=== PATIENT | female | born 1985 | race Caucasian/White ===

== ENCOUNTER 2019-04-01 07:55 | Emergency (ER) | payer OTHER ==
[~2019-04-01] VITALS: Ht 149.9 cm; Wt 79.4 kg
--- NOTE | 2019-04-01 08:22 | NUR ---
Patient ambulated to bed 12 with family. RN evaluating patient at bedside.
[2019-04-01 08:28] VITALS: BP 131/100
--- NOTE | 2019-04-01 09:10 | NUR ---
C/O FEVER WITH COUGH X 2 DAYS. TOOK MOTRIN AND TYLENOL AT 0300. PATIENT STATES PAIN OF 0/10 AT THIS TIME; VSS; PATIENT POSITIONED FOR COMFORT; HOB ELEVATED; BEDRAILS UP X1; BED DOWN. ER MD MADE AWARE OF PT STATUS.
[2019-04-01 11:16] VITALS: BP 125/98
--- NOTE | 2019-04-01 11:16 | NUR ---
Patient discharged with v/s stable. Written and verbal after care instructions given and explained. Patient alert, oriented and verbalized understanding of instructions. Ambulatory with steady gait. All questions addressed prior to discharge. ID band removed. Patient advised to follow up with PMD. Rx of Allergy Loratadine and Tessalon Perles given. Patient educated on indication of medication including possible reaction and side effects. Opportunity to ask questions provided and answered.
== END 2019-04-01 11:16 | disposition home or self-care (01) ==
LOC: MED 07:55
DX: B34.9 Viral infection, unspecified (principal)
CPT/HCPCS: 99283

== ENCOUNTER 2020-02-18 07:12 | Emergency (ER) | payer OTHER ==
[~2020-02-18] VITALS: Ht 149.9 cm; Wt 80.7 kg
[2020-02-18 07:14] VITALS: BP 150/84
--- NOTE | 2020-02-18 07:20 | NUR ---
Pt taken to bed 12.
--- NOTE | 2020-02-18 07:21 | NUR ---
pt amb steady gait to restroom to provide urine sample
--- NOTE | 2020-02-18 07:31 | NUR ---
34/F c/o hematuria multiple times last night; pressure like discomfort with urination and difficulty initiating urination x 2 days. Denies trauma or n/v/d. Pt appears NAD. PMH:
--- NOTE | 2020-02-18 08:18 | NUR ---
urine sample dropped off at lab
[2020-02-18 08:22] LABS: BILIRUBIN,URINE NEGATIVE (NEGATIVE); BLOOD, URINE 3+ (NEGATIVE); COLOR,URINE YELLOW (YELLOW); LEUKOCYTE ESTERASE ,URINE TRACE (NEGATIVE); NITRITE, URINE NEGATIVE (NEGATIVE); UGLUCOSE NEGATIVE (NEGATIVE)
[2020-02-18 08:30] LABS: RBC,URINE 50-80 /HPF (0-5)
[2020-02-18 08:32] LABS: APPEARANCE,URINE SLIGHTLY HAZY (CLEAR)
--- NOTE | 2020-02-18 08:47 | NUR ---
Dr. Talavera speaking with pt at bedside
--- NOTE | 2020-02-18 08:58 | NUR ---
BACK FROM CT SCAN VIA W/C
--- NOTE | 2020-02-18 09:32 | NUR ---
BLOOD DRAWN BEDSIDE AND DROPPED OFF AT LAB
[2020-02-18 10:00] LABS: BASOPHILS % (AUTO) 0.4 % (0.0-2.0); EOSINOPHILS # (AUTO) 0.2 K/uL (0-0.4); EOSINOPHILS % (AUTO) 1.8 % (0.0-4.0); HEMOGLOBIN 13.4 g/dL (12.0-16.0); LYMPHOCYTES # (AUTO) 1.5 K/uL (2.5-16.5); LYMPHOCYTES % (AUTO) 16.6 % (20.5-51.1); MEAN CORPUSCULAR HEMOGLOBIN 31 pg (27-31); MEAN CORPUSCULAR HGB CONC 34 g/dL (33-37); MONOCYTES # (AUTO) 0.5 K/uL (0.8-1.0); MONOCYTES % (AUTO) 5.9 % (1.7-9.3); NEUTROPHILS # (AUTO) 6.8 K/uL (1.8-7.7); NEUTROPHILS % (AUTO) 75.3 % (42.2-75.2); PLATELET COUNT (AUTO) 298 K/uL (140-450); RED BLOOD CELL COUNT(AUTO) 4.29 MIL/uL (4.20-5.40); RED CELL DISTRIBUTION WIDTH 12.5 % (11.6-13.7); WHITE BLOOD COUNT (AUTO) 9.1 K/uL (4.8-10.8)
[2020-02-18 10:34] LABS: ALBUMIN 4.1 g/dL (3.4-5.0); ANION GAP 12.2 (8-16); CARBON DIOXIDE 26.9 mmol/L (21-32); CREATININE 0.8 mg/dL (0.6-1.3); POTASSIUM 4.1 mmol/L (3.5-5.1); TOTAL BILIRUBIN 0.4 mg/dL (0.0-1.0)
--- NOTE | 2020-02-18 11:08 | NUR ---
Patient discharged with v/s stable. Written and verbal after care instructions given and explained. Patient alert, oriented and verbalized understanding of instructions. Ambulatory with steady gait. All questions addressed prior to discharge. ID band removed. Patient advised to follow up with PMD. Rx of Ciprofloxacin and ibuprofen given. Patient educated on indication of medication including possible reaction and side effects. Opportunity to ask questions provided and answered.
[2020-02-18 11:11] VITALS: BP 136/79
== END 2020-02-18 11:08 | disposition home or self-care (01) ==
LOC: MED 07:12
DX: N30.91 Cystitis, unspecified with hematuria (principal); Z98.890 Other specified postprocedural states
CPT/HCPCS: 36415; 80053; 81001; 81025; 85025; 99284